=== PATIENT | female | born 1990 | race Caucasian/White ===

== ENCOUNTER 2024-12-21 14:01 | Outpatient (CLI) | payer BC, SELFPAY ==
--- OUTSIDE RECORDS SUMMARY | 2024-12-21 14:03 | XMS_ITS | Continuity of Care Document ---
Author Organization [facility] Phone Care Team Providers Care Bleach Maker Name Role Phone JORGE MADRIGAL V Admitting Unavailable JORGE MADRIGAL V Primary Attending Unavailable SUZE LARES Primary Care SUZE LARES Unavailable ALLERGIES AND ADVERSE REACTIONS ALLERGIES AND ADVERSE REACTIONS Code System Allergy Substance Adverse Reaction Date Reaction (Severity) [place] [id number] RXNorm Levaquin Adverse reaction to substance Not Specified active [id number] on November 22, 2024 7:59:55 PM UTC FAMILY HISTORY RELATION: Father Status: LIVING SNOMED-CT Diagnosis Age At Onset [id number] Psoriatic arthritis [id number] Hyperlipidemia RELATION: Mother Status: LIVING SNOMED-CT Diagnosis Age At Onset Information not available RESULTS Patient: CHARMAINE Lamar Date of : November 29 2 LABORATORY RESULTS ORDER 100: CBC AUTO W DIFF ( LOINC: 88175-1) ORDER DATE: November 22, 2024 8:13:00 PM UTC Specimen Source: EDTA Specimen Type: Blood specime n with EDTA PERFORMING LAB: [address] [id number] Result Comment: Final Result Date: November 22, 2024 8:36:00 PM UTC (TECH: JNJ) LOINC TEST FLAG RESULT REFERENCE RANGE UPDA DANIELLE BY 6690-2 Leukocytes [#/volume] in Blood by Automated count N 5.4 K/ul 4.0 K/ul - 10.5 K/ul November 22, 2024 8:36:00 PM UTC (TECH: JNJ) 789-8 Erythrocytes [#/volume] in Blood by Automated count N 4.4 M/mm3 4.2 M/mm3 - 6.4 M/mm3 November 22, 2024 8:36:00 PM UTC (TECH: JNJ) 718-7 Hemoglobin [Mass/volume] in Blood N 12.9 gm/dl 12.5 gm/dl - 16.0 gm/dl November 22, 2024 8:36:00 PM UTC (TECH: Zuse) 85995-9 Hematocrit [Volume Fraction] of Blood N 38.7 % 37.0 % - 47.0 % November 22 8:36:00 PM UTC (TECH: Zuse) 787-2 Erythrocyte mean corpuscular volume [Entitic volume] by Automated count N 88.4 fl 78 fl - 100 fl November 22, 2024 8:36:00 PM UTC (TECH: Zuse) 785-6 Erythrocyte mean corpuscular hemoglobin [Entitic mass] by Automated count N 29.5 pg 27 pg - 31 pg November 22, 2024 8:36:00 PM UTC (TECH: Zuse) 786-4 Erythrocyte mean corpuscular hemoglobin concentration [Mass/volume] by Automated count N 33.3 g/dl 32 g/dl - 36 g/dl November 22, 2024 8:36:00 PM UTC (TECH: Zuse) 23407-8 Erythrocyte distribution width [Ratio] N 13.6 % 11.5 % - 14.0 % November 22, 2024 8:36:00 PM UTC (TECH: Zuse) 777-3 Platelets [#/volume] in Blood by Automated count N 289 K/ul 150 K/ul - 450 K/ul November 22, 2024 8:36:00 PM UTC (TECH: Zuse) 87295-5 Platelet mean volume [Entitic volume] in Blood by Automated count H 10.5 fl 6 fl - 9.5 fl November 22, 2024 8:36:00 PM UTC (TECH: Zuse) 63580-3 Neutrophils/100 leukocytes in Blood N 59.0 % 43 % - 65 % November 22 8:36:00 PM UTC (TECH: Zuse) 736-9 Lymphocytes/100 leukocytes in Blood by Automated count N 33.4 % 20.5 % - 45.5 % November 22 8:36:00 PM UTC (TECH: Zuse) 5905-5 Monocytes/100 leukocytes in Blood by Automated count L 5.4 % 5.5 % - 11.7 % November 22 8:36:00 PM UTC (TECH: Zuse) 713-8 Eosinophils/100 leukocytes in Blood by Automated count N 1.1 % 0.9 % - 2.9 % November 22 8:36:00 PM UTC (TECH: JNJ) 706-2 Basophils/100 leukocytes in Blood by Automated count N 0.9 % 0.2 % - 1.0 % November 22 8:36:00 PM UTC (TECH: Zuse) 11747-9 Immature granulocytes/100 leukocytes in Blood by Automated count N 0.2 % 0.0 % - 0.8 % November 22 8:36:00 PM UTC (TECH: Zuse) 06556-6 Nucleated cells [#/volume] in Blood N 0.0 % November 22 8:36:00 PM UTC (TECH: Zuse) 68092-8 Neutrophils [#/volume] in Blood N 3.2 K/uL 2.2 K/uL - 4.8 K/uL November 22, 2024 8:36:00 PM UTC (TECH: Zuse) 731-0 Lymphocytes [#/volume] in Blood by Automated count N 1.8 CELL/MCL 1.3 CELL/MCL - 2.9 CELL/MCL November 22, 2024 8:36:00 PM UTC (TECH: ChugJ) 742-7 Monocytes [#/volume] in Blood by Automated count N 0.3 CELL/MCL 0.3 CELL/MCL - 0.8 CELL/MCL November 22, 2024 8:36:00 PM UTC (TECH: ChugJ) 711-2 Eosinophils [#/volume] in Blood by Automated count N 0.1 CELL/MCL 0 CELL/MCL - 0.2 CELL/MCL November 22, 2024 8:36:00 PM UTC (TECH: JNJ) 704-7 Basophils [#/volume] in Blood by Automated count N 0.1 CELL/MCL 0.0 CELL/MCL - 1.0 CELL/MCL November 22, 2024 8:36:00 PM UTC (TECH: Zuse) 98709-3 Immature granulocytes [#/volume] in Blood N 0.01 K/ul November 22 8:36:00 PM UTC (TECH: ASHA) 43415-2 Nucleated cells [#/volume] in Blood N 0.00 K/uL November 22 8:36:00 PM UTC (TECH: ASHA) 47127-0 Manual Differential panel - Blood N NO November 22, 2024 8:36:00 PM UTC (TECH: ASHA) ORDER 200: COMP METABOLIC PA ANDREIA (LOINC: 04275-1) ORDER DATE: November 22, 2024 8:13:00 PM UTC Specimen Source: PLASMA Specimen Type: Plasma specim en PERFORMING LAB: [address] [id number] Result Comment: Final Result Date: November 22, 2024 9:10:00 PM UT (TECH: JCJennifer) LOINC TEST FLAG RESULT REFERENCE RANGE UPDA DANIELLE BY 2951-2 Sodium [Moles/volume ] in Serum or Plasma N 141 mmol/L 136 mmol/L - 145 mmol/L November 22, 2024 9:08:00 PM UTC (TECH: JCG) 2823-3 Potassium [Moles/volume] in Serum or Plasma N 3.7 mmol/L 3.6 mmol/L - 5.0 mmol/L November 22, 2024 9:08:00 PM UTC (TECH: JCG) 2075-0 Chloride [Moles/volu me] in Serum or Plasma N 104 mmol/L 98 mmol/L - 107 mmol/L November 22, 2024 9:08:00 PM UTC (TECH: JCG) 8-9 Carbon dioxide, tota l [Moles/volume] in Serum or Plasma N 29.2 mmol/L 21.0 mmol/L - 32.0 mmol/L November 22, 2024 9:08:00 PM UTC (TECH: JCG) 30193-5 Anion gap in Blood N 11.5 M 2024 9:08:00 PM UTC (TECH: JCG) 2345-7 Glucose [Mass/volume ] in Serum or Plasma N 80 mg/dl 70 mg/dl - 120 mg/dl November 22, 2024 9:08:00 PM UTC (TECH: JCG) 6299-2 Urea nitrogen [Mass/volume] in Blood N 9 mg/dL 7 mg/dL - 18 mg/dL November 22, 2024 9:08:00 PM UT (TECH: [employer]) 22320-3 Creatinine [Moles/volume] in Blood N 0.9 mg/dL 0.6 mg/dL - 1.3 mg/dL November 22, 2024 9:08:00 PM [facility] (TECH: [employer]) 69900-2 Glomerular filtratio n rate/1.73 sq M.predicted by Creatinine-based formula (MDRD) N 87 mlpermin 60 mlpermin November 22, 2024 9:08:00 PM [facility] (TECH: [employer]) 53176-9 Osmolality of Serum or Plasma by calculated by sum of electrolytes N 291 mosm/kg 275 mosm/kg - 301 mosm/kg November 22, 2024 9:08:00 PM [facility] (TECH: [employer]) 2885-2 Protein [Mass/volume ] in Serum or Plasma N 7.6 g/dl 6.4 g/dl - 8.2 g/dl November 22, 2024 9:10:00 PM [place] (TECH: JCG) 1751-7 Albumin [Mass/volume ] in Serum or Plasma N 4.2 g/dl 3.4 g/dl - 5.0 g/dl November 22, 2024 9:10:00 PM UT (TECH: JCG) 2336-6 Globulin [Mass/volum e] in Serum N 3.4 November 22, 2024 9:10:00 PM [facility] (TECH: JCG) 1759-0 Albumin/Globulin [Ma ss Ratio] in Serum or Plasma N 1.2 0.7 - 2 November 22, 2024 9:10:00 PM UT (TECH: JCG) 75325-3 Calcium [Mass/volume ] in Serum or Plasma N 8.7 mg/dl 8.5 mg/dl - 10.5 mg/dl November 22, 2024 9:08:00 PM UT (TECH: [employer]) 1975-2 Bilirubin.total [Mass/volume] in Serum or Plasma N 0.60 mg/dL 0.10 mg/dL - 1.00 mg/dL November 22, 2024 9:10:00 PM UT (TECH: JCG) 1920-8 Aspartate aminotransferase [Enzymatic activity/volume] in Serum or Plasma N 16 U/L 0 U/L - 37 U/L November 22, 2024 9:10:00 PM UTC (TECH: JCG) 1742-6 Alanine aminotransferase [Enzymatic activity/volume] in Serum or Plasma N 14 U/L 0 U/L - 65 U/L November 22, 2024 9:10:00 PM UTC (TECH: JCG) 6768-6 Alkaline phosphatase [Enzymatic activity/volume] in Serum or Plasma N 55 U/L 46 U/L - 116 U/L November 22, 2024 9:10:00 PM UTC (TECH: JCG) ORDER 300: URINE T EST (LOINC: 2106-3) ORDER DATE: November 22, 2024 8:13:00 PM UTC Specimen Source: URINE Specimen Type: Urine specime n PERFORMING LAB: [address] [id number] Result Comment: Final Result Date: November 22, 2024 8:55:00 PM UTC (TECH: JNJ) LOINC TEST FLAG RESULT REFERENCE RANGE UPDA DANIELLE BY 63 Choriogonadotropin ( test) [Presence] in Urine N NEGATIVE NEGATIVE November 22, 2024 8:55:00 PM UTC (TECH: JNJ) 44669-2 Reagent Lot number N [id number] 2024 8:55:00 PM UTC (TECH: JNJ) 98428-1 Choriogonadotropin [Units/volume] in Serum or Plasma N 10/25/25 November 22, 2024 8:55:00 PM UTC (TECH: JNJ) 70787-3 Internal control result N OK POSITI VE November 22, 2024 8:55:00 PM UTC (TECH: JNJ) ORDER 400: URINALYSIS REFLEX MICROSCOPIC (LOINC: 41119-8) ORDER DATE: November 22, 2024 8:13:00 PM UTC Specimen Source: URINE Specimen Type: Urine specime n PERFORMING LAB: [address] [id number] Result Comment: Final Result Date: November 22, 2024 8:54:00 PM UTC (TECH: JNJ) LOINC TEST FLAG RESULT REFERENCE RANGE UPDA DANIELLE BY 5778-6 Color of Urine N DRK YELLOW YELLOW Surendra 2024 8:54:00 PM UTC (TECH: JNJ) 5767-9 Appearance of Urine N HAZY CLEAR November 22, 2024 8:54:00 PM UTC (TECH: Zuse) 5792-7 Glucose [Mass/volume ] in Urine by Test strip N norm NORMAL November 22 8:54:00 PM UTC (TECH: ChugJ) 65801-8 Bilirubin.total [Mass/volume] in Urine by Automated test strip N NEGATIVE NEGATIVE November 22 8:54:00 PM UTC (TECH: Zuse) 5797-6 Ketones [Mass/volume ] in Urine by Test strip 5 NEGATIVE November 22 8:54:00 PM UTC (TECH: ChugJ) 2965-2 Specific gravity of Urine L 1.015 1.01 6 - 1.022 November 22, 2024 8:54:00 PM UTC (TECH: ChugJ) 28546-9 Erythrocytes [#/volu me] in Urine by Automated test strip 50 NEGATIVE November 22, 2024 8:54:00 PM UTC (TECH: Zuse) 55575-1 pH of Urine by Autom ated test strip N 6 5 - 9 November 22, 2024 8:54:00 PM UTC (TECH: JNJ) 50641-5 Protein [Presence] i n Urine by Test strip N TNP NEGATIVE November 22 8:54:00 PM UTC (TECH: ChugJ) 71436-3 Urobilinogen [Mass/volume] in Urine by Automated test strip N norm NORMAL November 22 8:54:00 PM UTC (TECH: Zuse) 03472-1 Nitrate [Presence] i n Urine N NEGATIVE NEGATIVE November 22, 2024 8:54:00 PM UTC (TECH: JNJ) 55068-6 Leukocytes [#/volume ] in Urine by Test strip N NEGATIVE NEGATIVE November 22 8:54:00 PM UTC (TECH: ChugJ) 59199-4 Urinalysis dipstick W Reflex Culture panel - Urine N NO November 22, 2024 8:54:00 PM UTC (TECH: JNJ) 67534-4 Erythrocytes [#/area ] in Urine sediment by Microscopy high power field 11-20 NONE SEEN November 22, 2024 8:54:00 PM UTC (TECH: JNJ) 5821-4 Leukocytes [#/area] in Urine sediment by Microscopy high power field N RARE NONE SEEN November 22, 2024 8:54:00 PM UT (TECH: Zuse) 52089-4 Epithelial cells.squ amous [#/area] in Urine sediment by Microscopy high power field N FEW NONE SEEN November 22, 2024 8:54:00 PM UTC (TECH: Zuse) 5769-5 Bacteria [#/area] in Urine sediment by Microscopy high power field N TRACE NONE SEEN November 22, 2024 8:54:00 PM UTC (TECH: JNPanelClaw) LABORATORY NARRATIVE RESULTS Information is not available RADIOLOGY RESULTS ORDER 500: CT RENAL STONE AB D/PEL NO CON (LOINC: 75130-4) ORDER DATE: November 22, 2024 8:16:00 PM UTC PERFORMING LAB: [address] [id number] Final Result Date: November 22, 2024 8:56:40 PM UTC [address] [address] Name: AVTAR MONTANO Exam Date: 11/22/2024 : 1990 Age 33 years Gender: F Physician: MALLORIE MCCLENDON Facility: [facility] Facility HSV: Outpatient Exam: CT RENAL STONE ABD/PEL(NO CON) EXAMINATION: CT ABDOMEN PELVIS WITHOUT IV CONTRAST RENAL CALCULI INDICATION:33 years Female 1990 Flank Pain Left Side COMPARISON(S): September 17, 2022 TECHNIQUE: CT abdomen and pelvis without contrast. One or more of the following dose-optimizing techniques was utilized for this exam: automated exposure control, adjustment of the mA and/or kV according to patient size, and/or use of iterative reconstruction technique. The lack of intravenous contrast limits the sensitivity of this exam for evaluation of solid visceral organs, vascular structures, and retroperitoneum. FINDINGS: * Lower chest: No acute abnormality * Hepatobiliary: No acute abnormality * Spleen unremarkable * Adrenals unremarkable * Pancreas unremarkable * Kidneys/ureters/bladder: Tiny nonobstructing stones bilaterally. No hydronephrosis. No ureteric stones are evident. Urinary bladder is unremarkable. * Reproductive structures are within normal limits. Intrauterine device in place. * No organized collections, free fluid, or free air * Bowel: No acute abnormality. Gastric surgical changes noted. * Unenhanced vasculature is unremarkable. * No acute osseous abnormality. Polyarticular degenerative changes. IMPRESSION: Nonobstructing renal calculi bilaterally. No hydronephrosis. No other acute findings. Electronically signed by: Alan Morales MD 11/22/2024 05:18 PM EDT RP Dictated By: Alan Morales Transcribed By: Transcribed On: 11/22/2024 4:56 PM Electronically signed by: Alan Morales 11/22/2024 Thank you for referring AVTAR MONTANO to [facility]. Legally authenticated by LANDY MANNING 2024-11-22 16:56:40 PATHOLOGY NARRATIVE RESULTS Information is not available MICROBIOLOGY RESULTS No Micro Labs/Results Exist for Patient BLOOD ADMIN RESULTS Information is not available MEDICATIONS HOME MEDICATIONS Status RXNORM NDC Medication Dose Route Frequency Dates Comments Reported By Updated By Drug Treatment Unknown DISCHARGE MEDICATIONS Status RXNORM NDC Medication Dose Route Frequency Dates Comments Physician Updated By No Discharge Medication Info rmation Available INPATIENT MEDICATIONS Status RXNORM NDC Medication Dose Route Frequency Rat e Quantity Dates Comments Physician Updated By Discont inued [id number] ketorolac (TORADOL) 30 MG/ML SOLN 30.0 MG ONE TIME ONLY (SCHEDULED DOSE) Start: November 22, 2024 8:26:0 0 PM [place] End: November 22, 2024 8:26:0 0 PM [facility] on November 22, 2024 8:29:00 PM UT Discont inued [id number] 5613 000 ondansetron (ZOFRAN) INJ 4 MG/2 ML SOLN 4.0 MG INTRAV ENOUS ONE TIME ONLY (SCHEDULED DOSE) Start: November 22, 2024 8:26:0 0 PM [place] End: November 22, 2024 8:26:0 0 PM [facility] on November 22, 2024 8:29:00 PM [facility] SOCIAL HISTORY SOCIAL HISTORY SNOMED-CT Social History Element Description Effective Dates Offered Cessation Comment UpdatedBy [id number] Current Tobacco smoking status Never Smoked [id number] on November 22, 2024 8:05:10 PM [facility] SOCIAL HISTORY - Gender Sex: Female SOCIAL HISTORY - Status : status i nformation is not available Intention in Next Year: intention information is not available SOCIAL HISTORY - Sexual Behavior Sexual Orientation Gender Identity SNOMED-CT Description SNO MED -CT Description Activity Level No of Partners Partner Type UpdatedBy Information is not available VITAL SIGNS PATIENT VITAL SIGNS This section displays the mo st recent value for each vital sign as of November 24, 2024 9:20:36 AM UT Loinc Code Vital Sign Activity Date Result Updated By 8867-4 Heart rate November 22, 2024 9:45:00 PM UTC 72 /min [id number] on November 23, 2024 10:20:36 PM UT 8462-4 Diastolic blood pressure November 22, 2024 8:29:00 PM UTC 69.0 mm[Hg] [id number] on November 23, 2024 10:20:32 [place] [address]-4 Oxygen saturation in Arterial blood by Pulse oximetry November 22, 2024 9:45:00 PM UT 99.0 % [id number] on November 23, 2024 10:20:36 PM UT 9279-1 Respiratory rate November 22, 2024 8:03:04 PM UTC 18 /min [id number] on November 23, 2024 10:20:29 PM UT 8480-6 Systolic blood pressure November 8:29:00 PM UTC 106.0 mm[Hg] [id number] on November 23, 2024 10:20:32 PM UT PEDIATRIC GROWTH CHART - VITAL SIGNS This section displays Head C ircumference Percentile, Weight for Length Percentile and BMI Percentile Loinc Code Pediatric Measure Age (Months) Result Updat ed By No Pediatric Growth Chart Pe rcentile Information Available. HEALTH CONCERNS Problems Concern Status Health Concern problem infor mation not available. Smoking Status Status Years Used Consumed packs p er day Health Concern smoking histo ry information not available. Family History Concern Status Health Concern family histor y information not available. ENCOUNTERS ENCOUNTER INFORMATION Reason for Visit KIDNEY STONE Admission November 22, 2024 7:45:00 PM UTC [facility] [address] [facility] [id number] Discharge November 22, 2024 10:20:00 PM UTC D ISCHARGED TO HOME OR SELF CARE ENCOUNTER DIAGNOSES Notes information is not grisel ilable. Code System Diagnosis Onset Date Diagnosis information is not available. ABSTRACT DIAGNOSES Code System Diagnosis Updated By R10.9 ICD10 UNSPECIFIED ABDOMINAL PAIN D [id number] on November 24, 2024 9:19:51 AM UTC R11.0 ICD10 NAUSEA [id number] on [facility] 2024 9:19:51 AM UTC R30.0 ICD10 DYSURIA [id number] on [facility] 2024 9:19:51 AM UTC R10.9 ICD10 UNSPECIFIED ABDOMINAL PAIN D [id number] on November 24, 2024 9:19:51 AM UTC R31.29 ICD10 OTHER MICROSCOPIC HEMATURIA [id number] on November 24, 2024 9:19:51 AM UTC Z88.1 ICD10 ALLERGY STATUS T O OTHER ANTIBIOTIC AGENTS [id number] on November 24, 2024 9:19:51 AM UTC Z87.442 ICD10 PERSONAL HISTORY OF URINARY CALCULI [id number] on November 24, 2024 9:19:51 AM UTC CARE TEAM Care Bleach Maker Role JORGE MADRIGAL Admitting JORGE MADRIGAL Primary Attending SUZE LARES Primary Care SUZE LARES 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
--- NOTE | 2024-12-21 14:04 | US_ITS ---
FINAL REPORT CLINICAL HISTORY: RENAL STONE FINDINGS: RENAL ULTRASOUND Ultrasound images of the kidneys were obtained. The right kidney measures 11.4 cm in length. It is normal echogenicity. There is no hydronephrosis or mass. There are 2 tiny echogenic foci in the right renal collecting system. The left kidney measures 12.2 cm in length. It is normal echogenicity. There is no hydronephrosis or mass. There are 2 tiny echogenic foci in the left renal collecting system. IMPRESSION: Tiny, bilateral nonobstructing renal stones. Reviewed, Interpreted and Dictated by Adrian Lockwood MD Transcribed by Lisa Wright Authenticated and [facility]
--- NOTE | 2024-12-21 14:04 | US_ITS ---
FINAL REPORT CLINICAL HISTORY: RENAL STONE FINDINGS: ULTRASOUND URINARY BLADDER Limited sonographic images of the urinary bladder were obtained. There is no bladder mass identified. Bilateral ureteral jets are noted. Prevoid bladder volume is 396.23 mL. Postvoid bladder volume is 33.63 mL. IMPRESSION: No bladder mass identified. Mild postvoid residual. Reviewed, Interpreted and Dictated by Adrian Lockwood MD Transcribed by Lisa Wright Authenticated and [facility]
== END 2024-12-21 23:59 | disposition home or self-care (01) ==
LOC: RAD 14:01
PROVIDERS: PCP Nurse Practitioner Family; Visit Provider Nurse Practitioner Family
DX: N20.0 Calculus of kidney (principal)
CPT/HCPCS: 76770; 76857

== ENCOUNTER 2025-07-23 14:33 | Outpatient (CLI) | payer BC, SELFPAY ==
--- NOTE | 2025-07-23 14:37 | CT_ITS ---
FINAL REPORT CLINICAL HISTORY: LOCALIZED ENLARGED LYMPH NODES on the right side behind the ear/ occipital bone area COMPARISON: None FINDINGS: TECHNIQUE: Multiple axial CT sections were performed from the foramen magnum to the vertex. Coronal reformatted images were also obtained. Precontrast and postcontrast injection images were obtained. This study was performed with technique to keep radiation doses as low as reasonably achievable, (ALARA). Individualized dose reduction techniques using automated exposure control or adjustment of mA and/or kV according to the patient size were employed. FINDINGS: The ventricles are normal in size. There is no evidence of hemorrhage. No masses are identified. No extra-axial fluid collection is seen. The sinuses are normal. No osseous abnormality is seen on the bone window images. Postcontrast images demonstrate no abnormal enhancement. There is normal vascular enhancement. No evidence of adenopathy. IMPRESSION: Unremarkable CT of the head with and without contrast. Reviewed, Interpreted and Dictated by Adrian Lockwood MD Transcribed by Macy Landry Authenticated and [facility]
[2025-07-23] MEDS: SODIUM CHLORIDE 0.9% 10ML SYR (RAD ONLY) 10 ML IV (15:01)
[2025-07-23] MEDS: IOPAMIDOL-300 (61%) 100ML VIAL 100 ML IV (15:02)
== END 2025-07-23 23:59 | disposition home or self-care (01) ==
LOC: RAD 14:34
PROVIDERS: PCP Nurse Practitioner Family; Visit Provider Nurse Practitioner Family
DX: R59.0 Localized enlarged lymph nodes (principal)
CPT/HCPCS: 70470; Q9967